=== PATIENT | female | born 1980 | race Caucasian/White ===

== ENCOUNTER 2018-07-16 14:43 | Inpatient (IN) | payer OTHER ==
[2018-07-16] MEDS ORDERED: MISOPROSTOL 200 MCG TAB PR ×2 (15:00→22:30)
[2018-07-16] MEDS ORDERED: LIDOCAINE 1% (MPF) 30 ML INJ INJ ×2 (15:00→17:00)
[2018-07-16] MEDS ORDERED: METHYLERGONOVINE 0.2 MG INJ IM ×2 (15:00→22:30)
[2018-07-16] MEDS ORDERED: BUTORPHANOL 1 MG INJ IV (15:00)
[2018-07-16] MEDS ORDERED: CARBOPROST 250 MCG INJ IM ×2 (15:00→22:30)
[2018-07-16] MEDS ORDERED: BUTORPHANOL 2 MG INJ IV (15:00)
[2018-07-16] MEDS ORDERED: OXYTOCIN 30 UNITS/LR 500 ML IV (15:00)
[2018-07-16 15:36] LABS: ADD MAN DIFF? NO
[2018-07-16 15:40] LABS: WHITE BLOOD COUNT 11.4 10^3/ul (4.8-10.8)
[2018-07-16 15:40] LABS: BASOPHILS % 0.3 % (0.0-2.0); EOSINOPHILS % 0.4 % (0.0-7.0); HEMATOCRIT 38.4 % (37.0-47.0); HEMOGLOBIN 12.9 g/dl (12.0-16.0); LYMPHOCYTES # 0.9 10^3/ul (0.8-2.9); LYMPHOCYTES % 7.7 % (15.0-51.0); MEAN CORPUSCULAR HEMOGLOBIN 28.4 pg (29.0-33.0); MEAN CORPUSCULAR HGB CONC 33.6 g/dl (32.0-37.0); MEAN CORPUSCULAR VOLUME 84.6 fl (82.0-101.0); MEAN PLATELET VOLUME 11.8 fl (7.4-10.4); MONOCYTE # 0.6 10^3/ul (0.3-0.9); NEUTROPHIL # 9.7 10^3/ul (1.6-7.5); NEUTROPHILS % 85.4 % (39.0-77.0); PLATELET COUNT 206 10^3/UL (140-415); RED BLOOD COUNT 4.54 10^6/ul (4.20-5.40); RED CELL DISTRIBUTION WIDTH 14.4 % (11.5-14.5)
[2018-07-16 16:00] LABS: INR 0.91; PROTIME 12.3 Sec (11.9-14.9)
[2018-07-16 16:01] LABS: PARTIAL THROMBOPLASTIN TIME 29.3 Sec (23.0-35.0)
[2018-07-16] MEDS: LACTATED RINGER'S 1,000 ML IV ×2 (16:02→17:13)
[2018-07-16] MEDS: OXYTOCIN 30 UNITS/LR 500 ML IV ×3 (18:51→22:47)
[2018-07-16] MEDS: IBUPROFEN 600 MG TAB PO (20:42)
[2018-07-16] MEDS ORDERED: ZOLPIDEM 5 MG TAB PO (22:30)
[2018-07-16] MEDS ORDERED: OXYCODONE/ASPIRIN (4.88/325) TAB PO ×2 (22:30)
[2018-07-16] MEDS: WITCH HAZEL/GLYCERIN PAD PR (22:45)
[2018-07-16] MEDS: BENZOCAINE 20% 56 ML SPRAY TOP (22:45)
[2018-07-16] MEDS: LANOLIN 7 GM TUBE TOP (22:45)
[2018-07-17] MEDS: LACTATED RINGER'S 1,000 ML IV ×2 (03:00→03:15)
[2018-07-17] MEDS: IBUPROFEN 600 MG TAB PO ×5 (05:57→23:33)
[2018-07-17 08:17] LABS: ADD MAN DIFF? NO
[2018-07-17 08:18] LABS: WHITE BLOOD COUNT 13.8 10^3/ul (4.8-10.8)
[2018-07-17 08:18] LABS: BASOPHILS % 0.1 % (0.0-2.0); EOSINOPHILS # 0.1 10^3/ul (0.0-0.5); EOSINOPHILS % 0.6 % (0.0-7.0); HEMATOCRIT 32.8 % (37.0-47.0); HEMOGLOBIN 10.9 g/dl (12.0-16.0); LYMPHOCYTES % 14.1 % (15.0-51.0); MEAN CORPUSCULAR HEMOGLOBIN 28.2 pg (29.0-33.0); MEAN CORPUSCULAR HGB CONC 33.2 g/dl (32.0-37.0); MEAN PLATELET VOLUME 12.5 fl (7.4-10.4); MONOCYTE # 0.8 10^3/ul (0.3-0.9); MONOCYTES % 5.7 % (0.0-11.0); NEUTROPHIL # 10.9 10^3/ul (1.6-7.5); NEUTROPHILS % 78.7 % (39.0-77.0); PLATELET COUNT 162 10^3/UL (140-415); RED BLOOD COUNT 3.86 10^6/ul (4.20-5.40); RED CELL DISTRIBUTION WIDTH 14.1 % (11.5-14.5)
[2018-07-17] MEDS: SENNA/DOCUSATE NA (8.6MG/50MG) TAB PO ×2 (08:54→20:14)
[2018-07-17 15:19] LABS: RAPID PLASMA REAGIN NONREACTIVE (NR)
[2018-07-18] MEDS: IBUPROFEN 600 MG TAB PO ×2 (05:34→11:41)
[2018-07-18] MEDS: DIPHTH/TET/ACEL PERTUSS (ADULT) 0.5 ML VIAL IM* (08:48)
[2018-07-18] MEDS: SENNA/DOCUSATE NA (8.6MG/50MG) TAB PO (08:48)
== END 2018-07-18 18:57 | disposition home or self-care (01) | DRG 807 ==
LOC: OBT 14:43 → L-D 14:46 → OBT 14:55 → L-D 14:55 → PP1 21:16
PROVIDERS: Obstetrics & Gynecology
PROC: 10E0XZZ Delivery of Products of Conception, External Approach (ICD-10-PCS; principal; 2018-07-16)
DX: O70.0 First degree perineal laceration during delivery (principal); Z37.0 Single live birth; Z3A.39 39 weeks gestation of pregnancy; Z23 Encounter for immunization
CPT/HCPCS: 85025; 85610; 85730; 86592; 86850; 86900; 86901; 90686; 90715